=== PATIENT | female | born 1960 | race Caucasian/White ===

== ENCOUNTER → 2024-01-13 | Outpatient (CLI) | payer MEDICAID | LOC: MHCPAIN 10:26 | DX: M47.812 Spondylosis without myelopathy or radiculopathy, cervical region (principal); M48.02 Spinal stenosis, cervical region; M43.14 Spondylolisthesis, thoracic region | CPT/HCPCS: G0463 ==

== ENCOUNTER → 2024-01-29 | Outpatient (CLI) | payer MEDICAID | LOC: MHCPAIN 09:58 | DX: M47.812 Spondylosis without myelopathy or radiculopathy, cervical region (principal); M54.2 Cervicalgia | CPT/HCPCS: J0665 ==

== ENCOUNTER → 2024-02-02 | Outpatient (CLI) | payer MEDICAID | LOC: MHCPAIN 09:42 | DX: M54.12 Radiculopathy, cervical region (principal); M48.02 Spinal stenosis, cervical region; M43.14 Spondylolisthesis, thoracic region; M54.2 Cervicalgia; M47.814 Spondylosis without myelopathy or radiculopathy, thoracic region; E03.9 Hypothyroidism, unspecified; E11.9 Type 2 diabetes mellitus without complications; Z79.84 Long term (current) use of oral hypoglycemic drugs; I10 Essential (primary) hypertension | CPT/HCPCS: G0463 ==

== ENCOUNTER → 2024-03-18 | Outpatient (CLI) | payer MEDICAID ==
[~2024-03-18] MED LIST: Lidocaine PF 2% (20 MG/ML) 5 ML VIAL ONE; Midazolam 2 MG/2 ML VIAL ONE; fentaNYL 50 MCG/ML 2 ML VIAL ONE
== END ==
LOC: MHCPAIN 11:14
DX: M47.812 Spondylosis without myelopathy or radiculopathy, cervical region (principal); M54.2 Cervicalgia
CPT/HCPCS: J0665; J2250; J3010

== ENCOUNTER → 2024-05-18 | Outpatient (CLI) | payer MEDICAID | LOC: MHCPAIN 09:45 | DX: M43.14 Spondylolisthesis, thoracic region (principal); M47.812 Spondylosis without myelopathy or radiculopathy, cervical region; M48.02 Spinal stenosis, cervical region; G89.29 Other chronic pain | CPT/HCPCS: G0463 ==